=== PATIENT | female | born 1970 | race Caucasian/White ===

== ENCOUNTER 2017-09-27 10:32 | Observation (INO) | payer OTHER ==
[~2017-09-27] VITALS: Ht 170.2 cm; Wt 74.8 kg
[2017-09-27 11:21] LABS: ABSOLUTE BASOPHIL COUNT 0 /CUMM (0.0-0.2); ABSOLUTE EOSINOPHIL COUNT 0.2 /CUMM (0.0-0.7); ABSOLUTE GRANULOCYTE CT 10.1 /CUMM (1.4-6.5); ABSOLUTE MONOCYTE COUNT 0.8 /CUMM (0.10-0.60); BASOPHIL % 0.1 % (0.0-2.0); EOSINOPHIL % 1.3 % (0-5); GRANULOCYTE % 83.7 % (42.2-75.2); HEMATOCRIT 39.9 % (37-47); MEAN CORPUSCULAR HGB 28.7 PG (27.0-31.0); MEAN CORPUSCULAR HGB CONC 33.8 G/DL (33.0-37.0); MEAN PLATELET VOLUME 7.9 FL (7.4-10.4); PLATELET COUNT 346 /CUMM (130-400); RBC DISTRIBUTION WIDTH 12.7 % (11.5-14.5); RED BLOOD CELL CT 4.69 /CUMM (4.20-5.40); WHITE BLOOD CELL COUNT 12.1 /CUMM (4.8-10.8)
--- NOTE | 2017-09-27 12:10 | ED GI/GU/ABDOMINAL COMPLAINT ---
History of Present Illness General Chief Complaint: Abdominal Pain/Flank Pain Stated Complaint: SENT IN BY URGENT CARE FOR ABD PAIN Source: patient Exam Limitations: no limitations Vital Signs & Intake/Output Vital Signs & Intake/Output Vital Signs Date Time Temp Pulse Resp B/P B/P Pulse O2 O2 Flow FiO2 Mean Ox Delivery Rate 09/27 1559 97.8 74 18 123/66 98 Room Air 09/27 1348 98.8 78 18 122/64 96 Room Air 09/27 1059 99.3 94 20 139/85 97 Room Air Allergies Coded Allergies: No Known Allergies (09/27/17) Reconcile Medications Acetaminophen (Tylenol Extra Strength) 500 MG TABLET 1 TAB PO Q6-8P PRN pain control available over the counter Amoxicillin/Potassium Clav (Augmentin 875-125 Tablet) 875 MG-125 MG TABLET 1 TAB PO BID INFECTION Docusate Sodium 100 MG CAPSULE 100 MG PO BID PRN CONSTIPATION .stool softener available over the counter Norethindrone AC-Eth Estradiol (Junel 1 MG-20 Mcg Tablet) 1 MG-20 MCG TABLET 1 TAB PO DAILY BC (Reported) Tramadol HCl 50 MG TABLET 1-2 TAB PO Q4-6 PRN PRN pain control . Triage Note: COMPLAINS OF N/V/D AND DIFFUSE ABD PAIN FOR THE PAST 4 DAYS. LBM THIS AM AND STATES THAT SHE HAS NOT BEEN EATING WELL DUE TO SYMPTOMS Triage Nurses Notes Reviewed? yes ? N Is pt currently ? No Onset: Abrupt Duration: hour(s): (12) Timing: multiple episodes today Quality/Severity: moderate, severe, vomiting Severity Numbers: 10 Location: right upper quadrant Radiation: back Activities at Onset: eating Modifying Factors: Worsens With: eating. Associated Symptoms: abdominal pain, nausea/vomiting HPI: This is a 46-year-old female who presents to the ER for chief complaint of epigastric abdominal pain, multiple episodes of nausea and vomiting that started last night after eating dinner. Pain radiates to her right flank. No fever but positive chills. She had similar symptoms between Monday night and Monday where she states that the pain came after eating. She does not drink any frequent alcohol. No history of similar symptoms. She denies any sick contacts. Past History Travel History Traveled to [place] past 21 day No Medical History Any Pertinent Medical History? 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 No Review of Systems Review of Systems Constitutional: Denies: chills, fever. EENTM: Reports: no symptoms. Respiratory: Reports: no symptoms. Cardiovascular: Reports: no symptoms. GI: Reports: abdominal pain, nausea, vomiting. Genitourinary: Denies: discharge, dysuria, frequency, hematuria. Musculoskeletal: Reports: back pain. Skin: Reports: no symptoms. Neurological/Psychological: Reports: no symptoms. Hematologic/Endocrine: Denies: bruising, bleeding, polyuria, polydipsia. Immunologic/Allergic: Denies: splenectomy. All Other Systems: Reviewed and Negative Physical Exam Physical Exam General Appearance: well developed/nourished, alert, awake, anxious, mild distress, moderate distress Head: atraumatic, normal appearance Eyes: Bilateral: normal appearance, PERRL, EOMI. Ears, Nose, Throat, Mouth: hearing grossly normal, DRY ORAL MUCOSA Neck: normal inspection, supple, full range of motion Respiratory: normal breath sounds, chest non-tender, no respiratory distress Cardiovascular: regular rate/rhythm Peripheral Pulses: 2+ radial (R), 2+ radial (L) Gastrointestinal: normal bowel sounds, soft, tenderness (RUQ), POSITIVE MURPHYS Back: normal inspection, normal range of motion Extremities: normal range of motion Neurologic/Psych: no motor/sensory deficits, awake, alert, oriented x 3 Skin: intact, normal color, warm/dry Core Measures ACS in differential dx? No Sepsis Present: No Sepsis Focused Exam Completed? No Progress Differential Diagnosis: biliary colic, cholecystitis, peptic ulcer, PUD/GERD, perforated viscous Plan of Care: Orders Procedure Date/time Status Place in observation 09/27 1625 Active Add-on Test (ER Only) 09/27 1217 Active LIPASE 09/27 1110 Complete URINALYSIS 09/27 1102 Complete PARTIAL THROMBOPLASTIN TIME 09/27 1102 Complete PROTHROMBIN TIME 09/27 1102 Complete LACTIC ACID 09/27 1102 Complete COMPREHENSIVE METABOLIC PANEL 09/27 1102 Complete CBC WITHOUT DIFFERENTIAL 09/27 110 Complete Current Medications Sig/[place] Start time Last Medication Dose Stop Time Status Admin Ampicillin Sodium/ 3,000 MG ONCE ONE 09/27 1600 AC Sulbactam Sodium 09/27 1629 (Unasyn) Sodium Chloride 100 ML (Normal Saline 0.9%) Dextrose/Sodium 1,000 ML Q8H 09/27 1530 AC 09/27 Chloride 1537 (D5W-1/2 Normal Saline 1000ML) Laboratory Tests 09/27/17 1437: Urine Color YEL, Urine Clarity CLEAR, Urine pH 7.0, Ur Specific [place] 1.015, Urine Protein NEG, Urine Ketones 40 H, Urine Nitrite NEG, Urine Bilirubin NEG, Urine Urobilinogen 0.2, Ur Leukocyte Esterase NEG, Ur Microscopic EXAM NOT REQUIRED, Urine Hemoglobin NEG, Urine Glucose NEG 09/27/17 1402: Lactic Acid Cancelled 09/27/17 1110: Anion Gap 12, Estimated GFR > 60, BUN/Creatinine Ratio 12.9, Glucose 97, Lactic Acid 0.7, Calcium 9.4, Total Bilirubin 0.7, AST 24, ALT 30, Alkaline Phosphatase 58, Total Protein 6.5, Albumin 3.6, Globulin 2.9, Albumin/Globulin Ratio 1.2, Lipase 28, CBC w Diff MAN DIFF ORDERED, RBC 4.69, MCV 85.0, MCH 28.7, RDW 12.7, MPV 7.9, Gran % 83.7 H, Lymphocytes % 7.9 L, Monocytes % 7.0, Eosinophils % 1.3, Basophils % 0.1, Absolute Granulocytes 10.1 H, Absolute Lymphocytes 1.0 L , Absolute Monocytes 0.8 H, Absolute Eosinophils 0.2, Absolute Basophils 0, Platelet Estimate VERIFIED BY SMEAR, Normocytic RBCs VERIFIED, Normochromic RBCs VERIFIED, PUBS MCHC 33.8 09/27/17 1102: PT 12.1, INR 1.15, APTT 26 2 PM D/W DR HALE FOR SURGICAL EVALUTION. SURGICAL PA PAGED. PATIENT UPDATED. Diagnostic Imaging: Viewed by Me: Ultrasound. Discussed w/RAD: Ultrasound. Radiology Impression: PATIENT: TIEN SOTO PRESENT AGE: 46 PATIENT ACCOUNT NO: [id number] : 69 LOCATION: [facility] ORDERING PHYSICIAN: Windy Barreto MD SERVICE DATE: 09/27/17 EXAM TYPE: US - US- LIMITED ABDOMEN EXAMINATION: US ABDOMEN LIMITED CLINICAL INFORMATION: Upper abdominal pain and vomiting x2 days. COMPARISON: None TECHNIQUE: Real-time imaging of the right upper quadrant abdominal viscera. FINDINGS: PANCREAS: Partially visualized body of the pancreas appears normal homogeneous echotexture. Rest of the pancreas is not visualized. LIVER: Normal. The liver demonstrates normal size, contour and echogenicity. No focal lesion or intrahepatic biliary duct dilatation. GALLBLADDER: There are multiple echogenic gallstones and echogenic bile with mild gallbladder wall thickening of 0.5 cm and pericholecystic trace fluid. Mild tenderness in the right upper quadrant is noted. Findings as suggestive of acute cholecystitis. COMMON BILE DUCT: Normal in caliber measuring 0.4 cm in diameter. RIGHT KIDNEY: Normal. No hydronephrosis. No renal calculi or focal parenchymal lesions. The kidney measures 11.5 cm in maximum dimension. FREE FLUID: None. IMPRESSION: Echogenic stones, echogenic bile with gallbladder wall thickening and trace fluid and mild tenderness in right upper quadrant by ultrasound probe is strongly suspicious for acute cholecystitis. Correlate with clinical exam. The CBD is nondilated measuring 0.4 cm. The right kidney and liver appears unremarkable. The pancreas is suboptimally visualized. DICTATED BY: Nuno Bhandari MD DATE/TIME DICTATED:1309 CUSTOMER SERVICE REP:DOTTIE DATE/TIME TRANSCRIBED:09/27/171309 CONFIDENTIAL, DO NOT COPY WITHOUT APPROPRIATE AUTHORIZATION. <Electronically signed in Other Vendor System> SIGNED BY: Nuno Bhandari MD 09/27/171318 Initial ED EKG: none Departure Departure Time of Disposition: 1551 Disposition: STILL A PATIENT Condition: Stable Clinical Impression Primary Impression: Acute cholecystitis Referrals: Rosy Camargo MD (PCP/Family) Departure Forms: Customer Survey General Discharge Information Prescriptions: Current Visit Scripts Amoxicillin/Potassium Clav (Augmentin 875-125 Tablet) 1 TAB PO BID #14 TAB Tramadol HCl 1-2 TAB PO Q4-6 PRN PRN pain control #30 TAB . Docusate Sodium 100 MG PO BID PRN CONSTIPATION #30 CAP .stool softener available over the counter Acetaminophen (Tylenol Extra Strength) 1 TAB PO Q6-8P PRN pain control 10 Days available over the counter Admission Note Documentation of Exam: Documentation of any treatments & extenuating circumstances including Concerns Regarding Discharge (functional status, medication knowledge or non-compliance, living conditions, etc.) that warrant an admission rather than observation: Observation Note Spoke With: Moe Hale DO Physician Advisor Notified: SIOMARA OLVERA DO Place Patient In: Non-ED OBS Care Area Rationale for Observation: My rational for observation is as follows [NPO, IV FLUIDS, IV ABX, TO GO TO THE OR FOR CHOLECYSTECTOMY].
[2017-09-27] MEDS ORDERED: JUNEL 1 MG-201 EACH PO (12:17)
[2017-09-27 12:41] LABS: PT 12.1 SEC (9.4-12.5); PTT 26 SEC (25-37)
--- NOTE | 2017-09-27 13:19 | ULTRASOUND REPORT ---
EXAMINATION: US ABDOMEN LIMITED CLINICAL INFORMATION: Upper abdominal pain and vomiting x2 days. COMPARISON: None TECHNIQUE: Real-time imaging of the right upper quadrant abdominal viscera. FINDINGS: PANCREAS: Partially visualized body of the pancreas appears normal homogeneous echotexture. Rest of the pancreas is not visualized. LIVER: Normal. The liver demonstrates normal size, contour and echogenicity. No focal lesion or intrahepatic biliary duct dilatation. GALLBLADDER: There are multiple echogenic gallstones and echogenic bile with mild gallbladder wall thickening of 0.5 cm and pericholecystic trace fluid. Mild tenderness in the right upper quadrant is noted. Findings as suggestive of acute cholecystitis. COMMON BILE DUCT: Normal in caliber measuring 0.4 cm in diameter. RIGHT KIDNEY: Normal. No hydronephrosis. No renal calculi or focal parenchymal lesions. The kidney measures 11.5 cm in maximum dimension. FREE FLUID: None. IMPRESSION: Echogenic stones, echogenic bile with gallbladder wall thickening and trace fluid and mild tenderness in right upper quadrant by ultrasound probe is strongly suspicious for acute cholecystitis. Correlate with clinical exam. The CBD is nondilated measuring 0.4 cm. The right kidney and liver appears unremarkable. The pancreas is suboptimally visualized.
--- NOTE | 2017-09-27 20:17 | History & Physical Pre-Op ---
GinaAmanda 09/27/17 2007: General Information and HPI MD Statement: I have seen and personally examined TIEN SOTO and documented this H&P. The patient is a 46 year old F who presented with a patient stated chief complaint of [epigastric abdominal pain]. Source of Information: patient Exam Limitations: no limitations History of Present Illness: Patient presents to the ER today with complaints of nausea and vomitting that began after eating dinner last night. She states that she had a similar episode of nausea several days ago that resolved spontaneously. She denies chest pain, shortness of breath and difficulty breathing. She had a loose bm three days ago , then was constipated until this am when she had a formed, difficult to pass bowel movement. She underwent a diagnostic ultrasound and was found to have a positive avendano's sign during the procedure, in addition to the findings suggestive of cholecystitis and cholelithiasis. 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 EENTM: Reports: no symptoms. Cardiovascular: Reports: no symptoms. Respiratory: Reports: no symptoms. GI: Reports: see HPI, abdominal pain, constipation, nausea, vomiting. Genitourinary: Reports: no symptoms. Musculoskeletal: Reports: no symptoms. Skin: Reports: no symptoms. Neurological/Psychological: Reports: no symptoms. Hematologic/Endocrine: Reports: no symptoms. Exam & Diagnostic Data Last 24 Hrs of Vital Signs/I&O Vital Signs Date Time Temp Pulse Resp B/P B/P Pulse O2 O2 Flow FiO2 Mean Ox Delivery Rate 09/27 1832 98.6 74 18 130/77 98 Room Air 09/27 1559 97.8 74 18 123/66 98 Room Air 09/27 1348 98.8 78 18 122/64 96 Room Air 09/27 1059 99.3 94 20 139/85 97 Room Air Intake & Output 09/27 1600 09/27 0800 09/27 0000 Intake Total 1000 Output Total Balance 1000 Intake, IV 1000 Patient 165 lb Weight Physical Exam: General: Alert and oriented x3, no acute distress Cardiac: RRR, s1s2 Pulm: CTA bilaterally Abd: Epigastic tenderness, ruq tenderness, soft distension Extremities: Moves all extremities, distal sensation intact, skin warm and well perfused, dp pulses palpable bilaterally, bilateral calves soft and non-tender Assessment/Plan Assessment/Plan: This is a 46 year old female, presented to ER with complaints of epigastric abdominal pain, found to have acute cholecystitis/cholelithiasis on ultrasound evaluation. -Unasyn 3g iv now -NPO -IV hydration -Morphine prn for pain -Plan for laparoscopic cholecystectomy with Dr. Bowser today Mague DIALLO Abraham 09/27/172211: Assessment/Plan As Ranked By This Provider Problem List: 1. Acute cholecystitis Attending MD Review Statement Attending Statement Attending MD Statement: examined this patient, discuss w/resident/PA/DIABETES TERRITORY MANAGER, agreed w/resident/PA/DIABETES TERRITORY MANAGER, discussed with family, reviewed images Attending Assessment/Plan: Patient seen and examined, agree with above. Abdominal pain on and off since Monday. + N/V. Pain epigastric/RUQ. AVSS. Abd-soft, +RUQ tenderness. Labs WBC 12, otherwise normal. Reji - c/w acute calculous cholecystitis. Will admit, NPO/ IVF, IV Abx, plan for Lap Cherelle today. D/W patient, family, and ED staff.
--- NOTE | 2017-09-27 22:26 | Operative Report ---
Operative/Inv Procedure Report Surgery Date: 09/27/17 Name of Procedure: Laparoscopic Cholecystectomy Pre-Operative Diagnosis: Acute Cholecystitis Post-Operative Diagnosis: Same Estimated Blood Loss: 50ml to 100ml Surgeon/Skin Toggler: Moe Zamorano Anesthesia: general endotracheal tube IV Fluids: 1700 cc Drains: 10 Fr RUQ PO Drain Specimens: Gallbladder Complications: None Condition: Stable Operative Indication: This is a 46-year-old female who presented to the emergency room with several days of abdominal pain. After appropriate workup was completed the patient was diagnosed with acute cholecystitis. A laparoscopic possible open cholecystectomy was discussed in detail. All risks including but not limited to bleeding, infection, bile leak, and injury to surrounding duct/bowel were discussed in detail. I did explain to the patient and family given the duration of the symptoms there is a chance that the gallbladder may be badly inflamed may require more extensive dissection and postoperative care PO drain and antibiotics. The patient and the family understood everything and decided to proceed. Operative/Procedure Note Note: The patient was brought to the operating room and placed on the operating room table in supine position. Venodyne stockings were placed and adequate general endotracheal anesthesia was obtained. The patient was prepped and draped in standard surgical fashion. We began the procedure by making a 2 cm transverse incision in the infraumbilical crease. The incision was carried down to the fascia, once the fascia was clearly visualized it was picked up between 2 pepper clamps. The fascia was divided in the midline and once we entered the peritoneum 2 stay 0 Vicryl sutures were placed on each side. A 12 mm blunt port was inserted and the abdominal cavity was insufflated to 15 mmHg. A 10 mm 30 laparoscope was introduced and upon initial examination no obvious gross pathology was seen. We did note a markedly distended gallbladder in the right upper quadrant with omentum adhesed to it covering the whole gallbladder. Accessory trocars were placed, all 5 mm, one in the epigastrium and 2 in the right upper quadrant (one in the midclavicular line and one in the anterior axillary line, both 2 fingerbreadths below the costal margin). The gallbladder was grasped with the lateralmost trocar and retracted up over the liver after lysing omental adhesions using blunt dissection and hook electrocuatery. Of note approximately 30 cc of bile were aspirated to allow me to grasp the gallbladder. Using the other 2 accessory trocars the infundibulum was grasped and the peritoneum was lysed using blunt dissection and using hook electrocautery. There was a lot of inflammation and dense adhesions around the infundibulum altering the anatomy. The cystic artery were visualized. The common bile duct was visualized and it was away from our area of dissection. The artery was skeletonized and divided between clips, 2 clips to stay and one clip on the gallbladder side for the artery. We then proceeded dissecting further and a very short cystic duct was encountered that appeared slightly friable and involved in the dense adhesions. The duct was dissected and divided between clips, only 2 clips were able to be placed to stay given inflammation and friable nature of the duct. The gallbladder was dissected off the liver bed using hook electrocautery maintaining hemostasis. Prior to completely removing the gallbladder off the liver bed we examined the area of dissection no obvious bile leak or bleeding was noted, the clips appeared to be in good position. The gallbladder was completely detached from the liver bed. Of note the gallbladder was very friable and at points necrotic so there was no dissection pland and the removal took some time. We switched to a 5 mm laparoscope and a 10 mm Endobag was introduced through the umbilical trocar site. The gallbladder was placed in the bag and removed through the umbilicus. The abdomen was reinsufflated. We switched back to a 10 mm laparoscope and examined our area of dissection. No obvious bile leak or bleeding was noted. The right upper quadrant was irrigated until clear. 10 [address] PO drain was place through the lateral most trocar into the gallbladder fossa. All ports were removed under direct visualization, no obvious bleeding was noted. The umbilical trocar site was closed using 0 Vicryl suture. The skin was closed using 4-0 Monocryl. Steri-Strips and dressings were placed. The patient was successfully extubated and transferred to the recovery room in stable condition. The patient tolerated the procedure well with no complications. Findings: Friable/necrotic gallbladder, multiple stones, short cystic duct, dense adhesions/inflammation around infundibulum CC: Mary Jo STRONG,Rosy
--- NOTE | 2017-09-27 23:24 | Admission Core Measures ---
Acute Coronary Syndrome (CM) ACS Core Measures Acute Coronary Syndrome Diagnosis No Congestive Heart Failure (NEW) CHF Core Measures Congestive Heart Failure Diagnosis No Cerebrovascular Accident (NEW) CVA Core Measures CVA/TIA Diagnosis No Venous Thromboembolism VTE Core [place] (View Protocol) VTE Risk Factors Surgery No Mechanical VTE Prophylaxis d/t N/A MechProphylax Ordered No VTE Pharm Prophylaxis d/t NA PharmProphylax ordered Problem List As ranked by this Provider includes Assessment & Plan 1. Acute cholecystitis HOME MEDS Home Med List Norethindrone AC-Eth Estradiol (Junel 1 MG-20 Mcg Tablet) 1 MG-20 MCG TABLET 1 TAB PO DAILY BC (Reported)
[2017-09-28 00:08] VITALS: BP 132/68
--- NOTE | 2017-09-28 07:41 | PN- General Surgery ---
See Addendum Subjective Subjective: No acute overnight events reported. Pain controlled. No nausea or vomitting. No chest pain, shortness of breath and difficulty breathing. Has voided. No flatus. Objective Vital Signs and I&Os Vital Signs Date Time Temp Pulse Resp B/P B/P Pulse O2 O2 Flow FiO2 Mean Ox Delivery Rate 09/28 0008 97.9 84 18 132/68 91 09/27 1832 98.6 74 18 130/77 98 Room Air 09/27 1559 97.8 74 18 123/66 98 Room Air 09/27 1348 98.8 78 18 122/64 96 Room Air 09/27 1059 99.3 94 20 139/85 97 Room Air Intake & Output 09/28 0800 09/28 0000 09/27 1600 09/27 0800 09/27 0000 09/26 1600 Intake Total 1000 Output Total 950 Balance -950 1000 Intake, IV 1000 Output, Urine 950 Patient 165 lb 165 lb Weight Physical Exam: General: AAO x3, no acute distress Cardiac: RRR, s1s2 PUlm: CTA bilaterally ABD: Padmini-incisional tenderness Assessment/Plan Assessment/Plan This is a 46 year old female, POD 1, s/p laparoscopic cholecystectomy, placed in observation status for iv antibiotic administrations, post op monitoring and pain control. -Continue unasyn for now -DC iv fluids if tolerating po -Follow up am labs -Hep sub q for dvt ppx -Continue drain to self suction today, monitor output -Anticipate dc to home possibly today vs tomorrow -Will d/w Dr. Bowser Core Measures Venous Thromboembolism VTE Risk Factors Surgery No Mechanical VTE Prophylaxis d/t N/A MechProphylax Ordered No VTE Pharm Prophylaxis d/t NA PharmProphylax ordered
[2017-09-28 07:58] VITALS: BP 130/70
[2017-09-28 12:56] LABS: ABSOLUTE BASOPHIL COUNT 0 /CUMM (0.0-0.2); ABSOLUTE EOSINOPHIL COUNT 0 /CUMM (0.0-0.7); ABSOLUTE GRANULOCYTE CT 8.7 /CUMM (1.4-6.5); ABSOLUTE LYMPH COUNT 0.8 /CUMM (1.2-3.4); ABSOLUTE MONOCYTE COUNT 0.5 /CUMM (0.10-0.60); BASOPHIL % 0.1 % (0.0-2.0); EOSINOPHIL % 0.2 % (0-5); HEMATOCRIT 35.2 % (37-47); MEAN CORPUSCULAR HGB 29.2 PG (27.0-31.0); MEAN CORPUSCULAR HGB CONC 34.4 G/DL (33.0-37.0); MEAN CORPUSCULAR VOLUME 84.8 FL (81.0-99.0); MEAN PLATELET VOLUME 8.2 FL (7.4-10.4); PLATELET COUNT 281 /CUMM (130-400); RBC DISTRIBUTION WIDTH 12.3 % (11.5-14.5); RED BLOOD CELL CT 4.15 /CUMM (4.20-5.40)
[2017-09-28 13:18] LABS: GRANULOCYTE % 87.3 % (42.2-75.2)
[2017-09-28 14:39] VITALS: BP 110/64
--- NOTE | 2017-09-28 20:04 | Patient Discharge Instructions ---
Discharge Instructions General Discharge Information You were seen/treated for: Acute cholecystitis You had these procedures: Laparoscopic Cholecystectomy on 09/27/[address] Bowser Watch for these problems: Increased pain, fever, chills, nausea, vomiting, redness, swelling or purulent drainage from your incisions Do not soak the wound: Yes No bath, but you may shower: Yes Other wound care: Keep incisions clean and dry Change dressing daily as needed Special Instructions: Contact Dr. Rea office to schedule a follow up appointment in 10-14 days or sooner with concerns. Diet Continue normal diet: No Recommended Diet: Low Fat Activity Full Activity/No Limits: No Pounds, do NOT lift more than: 10 Other activity limits: No heavy lifting or strenous activity x 4 weeks Acute Coronary Syndrome Inclusion Criteria At DC or during hospital stay patient has or had the following: ACS DIAGNOSIS No Discharge Core Measures Meds if any: Prescribed or Continued at Discharge Meds if any: NOT Prescribed or Continued at Discharge Congestive Heart Failure Inclusion Criteria At DC or during hospital stay patient has or had the following: CHF DIAGNOSIS No Discharge Core Measures Meds if any: Prescribed or Continued at Discharge Meds if any: NOT Prescribed or Continued at Discharge Cerebrovascular accident Inclusion Criteria At DC or during hospital stay patient has or had the following: CVA/TIA Diagnosis No Discharge Core Measures Meds if any: Prescribed or Continued at Discharge Meds if any: NOT Prescribed or Continued at Discharge Venous thromboembolism Inclusion Criteria VTE Diagnosis No VTE Type NONE VTE Confirmed by (Test) NONE Discharge Core Measures - Per Current guidelines, there needs to be overlap - treatment for the first 5 days of Warfarin therapy. - If discharged on Warfarin prior to 5 days of - overlap therapy, the patient will need to be - assessed for post discharge needs including - *Post discharge parental anticoagulation - *Warfarin and/or parental anticoagulation education - *Follow up date to check INR post discharge At least 5 days overlap therapy as Inpatient No Meds if any: Prescribed or Continued at Discharge Note: Overlap Therapy is Warfarin and Anticoagulant Meds if any: NOT Prescribed or Continued at Discharge
--- NOTE | 2017-09-28 20:11 | Surg Short-stay <48hrs Dis Sum ---
Visit Information Visit Dates Admission Date: 09/27/17 Discharge Date: 09/29/17 Surgical Short Stay DC Summary Admission Diagnosis: Acute cholecystitis Final Diagnosis: DERICK, s/p laparoscopic cholecystectomy Procedure(s): Laparoscopic cholecystectomy on 09/27/17 Summary/Significant Findings: Patient presented to [facility] on 09/27/17 complaining of epigastric pain , nausea and vomiting. She had a diagnostic ultrasound which revealed findings suggestive of cholecystitis and cholelithiasis. She was started on IV Unasyn and taken to the OR emergently for a laparoscopic cholecystectomy with PO drain placement. Patient tolerated the procedure well. Diet was advanced and tolerated. Pain was well controlled with oral analgesics. PO drain was removed prior to discharge. Remainder of hospital course was uneventful. Condition at Discharge: Stable Discharge Disposition: home or self care Discharge instructions provided to patient/family: Yes Post discharge follow-up plan: F/u with Dr. Bowser in 1-2 weeks for postop check Copies to: Rosy Camargo MD
[2017-09-28 21:36] VITALS: BP 110/70
[2017-09-29 06:57] VITALS: BP 110/66
--- NOTE | 2017-09-29 07:32 | PN- General Surgery ---
Subjective Subjective: Reports feeling "weak". Tolerating clears. Passing some flatus. Reports pain improves with toradol. She can't tolerate percocet. Out of bed a few times yesterday. No dizziness. No shortness of breath. No chest pains. Objective Vital Signs and I&Os Vital Signs Date Time Temp Pulse Resp B/P B/P Pulse O2 O2 Flow FiO2 Mean Ox Delivery Rate 09/29 0657 98.3 88 20 110/66 93 Room Air 09/28 2136 98.2 87 20 110/70 95 09/28 1439 98.6 101 20 110/64 93 Room Air 09/28 0758 97.9 75 18 130/70 95 Intake & Output 09/29 0800 09/29 0000 09/28 1600 09/28 0800 09/28 0000 09/27 1600 Intake Total 550 629 394 5272 Output Total 300 1665 1440 Balance 250 -1190 -480 1000 Intake, IV 75 600 1000 Intake, Oral 550 400 360 Output, 15 40 Drainage Output, Urine 300 1650 1400 Patient 165 lb 165 lb Weight Physical Exam: General - alert & oriented x 3. comfortable. no acute distress. Lungs - clear. decreased breath sounds b/l bases. Cardiac - s1s2. reg. Abdomen - soft. PO drain with scant serosang drainage. no bile. expected laila- incisional tenderness. Extremities - warm bilaterally. no c/c/e. calves soft and nontender b/l. Current Medications: Current Medications Sig/[place] Start time Last Medication Dose Route Stop Time Status Admin Ampicillin Sodium/ 3,000 MG Q6H 09/28 0900 09/29 Sulbactam Sodium IV 0329 Sodium Chloride 100 ML Dextrose/Sodium 1,000 ML .[id number] 09/27 2330 AL 09/28 Chloride IV 0033 Docusate Sodium 100 MG BID 09/28 2200 AC 09/28 PO 2130 Heparin Sodium 5,000 UNIT Q8 09/28 0600 AC 09/29 (Porcine) SC 0636 Ketorolac 30 MG Q8H 09/28 1730 AC 09/29 Tromethamine IV 0135 Ketorolac 30 MG Q8P PRN 09/28 0800 DC 09/28 Tromethamine IV 10/01 0759 0800 Ondansetron HCl 4 MG Q8P PRN 09/27 2330 IV Oxycodone/ 1 TAB Q4P PRN 09/27 2345 DC Acetaminophen PO Oxycodone/ 2 TAB Q4P PRN 09/27 2345 DC Acetaminophen PO Polyethylene Glycol 17 GM DAILY 09/28 2108 AC 09/28 PO 2152 Tramadol HCl 50 MG Q4P PRN 09/28 09 AC 09/28 PO 2129 Zolpidem Tartrate 5 MG AT BEDTIME 09/28 2200 AC 09/28 PO 213 Results Last 48 Hours of Labs: Laboratory Tests 09/28 09/28 1231 1231 Chemistry Sodium (137 - 145 mmol/L) 137 Potassium (3.5 - 5.1 mmol/L) 3.7 Chloride (98 - 107 mmol/L) 104 Carbon Dioxide (22 - 30 mmol/L) 25 Anion Gap (5 - 16) 9 BUN (7 - 17 mg/dL) 5 L Creatinine (0.5 - 1.0 mg/dL) 0.6 Estimated GFR (>60 ml/min) > 60 BUN/Creatinine Ratio (7 - 25 %) 8.3 Total Bilirubin (0.2 - 1.3 mg/dL) 0.3 Direct Bilirubin (< 0.4 mg/dL) 0.3 AST (14 - 36 U/L) 36 ALT (9 - 52 U/L) 42 Alkaline Phosphatase (<127 U/L) 62 Total Protein (6.3 - 8.2 g/dL) 5.6 L Albumin (3.5 - 5.0 g/dL) 3.2 L Hematology CBC w Diff NO MAN DIFF REQ WBC (4.8 - 10.8 /CUMM) 10.0 RBC (4.20 - 5.40 /CUMM) 4.15 L Hgb (12.0 - 16.0 G/DL) 12.1 Hct (37 - 47 %) 35.2 L MCV (81.0 - 99.0 FL) 84.8 MCH (27.0 - 31.0 PG) 29.2 RDW (11.5 - 14.5 %) 12.3 Plt Count (130 - 400 /CUMM) 281 MPV (7.4 - 10.4 FL) 8.2 Gran % (42.2 - 75.2 %) 87.3 H Lymphocytes % (20.5 - 51.1 %) 7.9 L Monocytes % (1.7 - 9.3 %) 4.5 Eosinophils % (0 - 5 %) 0.2 Basophils % (0.0 - 2.0 %) 0.1 Absolute Granulocytes (1.4 - 6.5 /CUMM) 8.7 H Absolute Lymphocytes (1.2 - 3.4 /CUMM) 0.8 L Absolute Monocytes (0.10 - 0.60 /CUMM) 0.5 Absolute Eosinophils (0.0 - 0.7 /CUMM) 0 Absolute Basophils (0.0 - 0.2 /CUMM) 0 PUBS MCHC (33.0 - 37.0 G/DL) 34.4 09/27 09/27 1437 1402 Chemistry Lactic Acid Cancelled Urines Urine Color (YEL,AMB,STR) YEL Urine Clarity (CLEAR) CLEAR Urine pH (5.0 - 8.0) 7.0 Ur Specific [place] (1.001 - 1.035) 1.015 Urine Protein (NEG,<30 MG/DL) NEG Urine Ketones (NEG) 40 H Urine Nitrite (NEG) NEG Urine Bilirubin (NEG) NEG Urine Urobilinogen (0.1 - 1.0 EU/dl) 0.2 Ur Leukocyte Esterase (NEG) NEG Ur Microscopic EXAM NOT REQUIRED Urine Hemoglobin (NEG) NEG Urine Glucose (N MG/DL) NEG 09/27 09/27 1110 1102 Chemistry Sodium (137 - 145 mmol/L) 140 Potassium (3.5 - 5.1 mmol/L) 4.0 Chloride (98 - 107 mmol/L) 105 Carbon Dioxide (22 - 30 mmol/L) 23 Anion Gap (5 - 16) 12 BUN (7 - 17 mg/dL) 9 Creatinine (0.5 - 1.0 mg/dL) 0.7 Estimated GFR (>60 ml/min) > 60 BUN/Creatinine Ratio (7 - 25 %) 12.9 Glucose (65 - 99 mg/dL) 97 Lactic Acid (0.7 - 2.1 mmol/L) 0.7 Calcium (8.4 - 10.2 mg/dL) 9.4 Total Bilirubin (0.2 - 1.3 mg/dL) 0.7 AST (14 - 36 U/L) 24 ALT (9 - 52 U/L) 30 Alkaline Phosphatase (<127 U/L) 58 Total Protein (6.3 - 8.2 g/dL) 6.5 Albumin (3.5 - 5.0 g/dL) 3.6 Globulin (1.9 - 4.2 gm/dL) 2.9 Albumin/Globulin Ratio (1.1 - 2.2 %) 1.2 Lipase (23 - 300 U/L) 28 Coagulation PT (9.4 - 12.5 SEC) 12.1 INR (0.90 - 1.19) 1.15 APTT (25 - 37 SEC) 26 Hematology CBC w Diff MAN DIFF ORDERED WBC (4.8 - 10.8 /CUMM) 12.1 H RBC (4.20 - 5.40 /CUMM) 4.69 Hgb (12.0 - 16.0 G/DL) 13.5 Hct (37 - 47 %) 39.9 MCV (81.0 - 99.0 FL) 85.0 MCH (27.0 - 31.0 PG) 28.7 RDW (11.5 - 14.5 %) 12.7 Plt Count (130 - 400 /CUMM) 346 MPV (7.4 - 10.4 FL) 7.9 Gran % (42.2 - 75.2 %) 83.7 H Lymphocytes % (20.5 - 51.1 %) 7.9 L Monocytes % (1.7 - 9.3 %) 7.0 Eosinophils % (0 - 5 %) 1.3 Basophils % (0.0 - 2.0 %) 0.1 Absolute Granulocytes (1.4 - 6.5 /CUMM) 10.1 H Absolute Lymphocytes (1.2 - 3.4 /CUMM) 1.0 L Absolute Monocytes (0.10 - 0.60 /CUMM) 0.8 H Absolute Eosinophils (0.0 - 0.7 /CUMM) 0.2 Absolute Basophils (0.0 - 0.2 /CUMM) 0 Platelet Estimate (ADEQUATE) VERIFIED BY SMEAR Normocytic RBCs VERIFIED Normochromic RBCs VERIFIED PUBS MCHC (33.0 - 37.0 G/DL) 33.8 Assessment/Plan Assessment/Plan This 46 year old female is POD#2 s/p laparoscopic cholecystectomy for acute cholecystitis tolerating clears. to try food this morning iv unasyn for acute cary pain improves with iv toradol / tylenol hep sc - dvt ppx oob/ambulation encouraged PO drain removed d/c home today after labs checked & reviewed, including lfts will d/w Core Measures Venous Thromboembolism VTE Risk Factors Surgery No Mechanical VTE Prophylaxis d/t N/A MechProphylax Ordered No VTE Pharm Prophylaxis d/t NA PharmProphylax ordered
[2017-09-29] MEDS ORDERED: TRAMADOL HCL50 M1 PO ×2 (07:43→14:35)
[2017-09-29] MEDS ORDERED: TYLENOL EXTRA500 M2 PO (07:43)
[2017-09-29] MEDS ORDERED: DOCUSATE SODIU100 M3 PO ×2 (07:43→14:38)
[2017-09-29 10:59] LABS: ABSOLUTE BASOPHIL COUNT 0.1 /CUMM (0.0-0.2); ABSOLUTE EOSINOPHIL COUNT 0.2 /CUMM (0.0-0.7); ABSOLUTE GRANULOCYTE CT 5.7 /CUMM (1.4-6.5); ABSOLUTE LYMPH COUNT 0.9 /CUMM (1.2-3.4); ABSOLUTE MONOCYTE COUNT 0.6 /CUMM (0.10-0.60); BASOPHIL % 0.8 % (0.0-2.0); EOSINOPHIL % 2.4 % (0-5); GRANULOCYTE % 76.8 % (42.2-75.2); HEMATOCRIT 35.2 % (37-47); MEAN CORPUSCULAR HGB 28.9 PG (27.0-31.0); MEAN CORPUSCULAR HGB CONC 34.2 G/DL (33.0-37.0); MEAN CORPUSCULAR VOLUME 84.5 FL (81.0-99.0); MEAN PLATELET VOLUME 7.7 FL (7.4-10.4); PLATELET COUNT 303 /CUMM (130-400); RBC DISTRIBUTION WIDTH 12.6 % (11.5-14.5); RED BLOOD CELL CT 4.17 /CUMM (4.20-5.40); WHITE BLOOD CELL COUNT 7.5 /CUMM (4.8-10.8)
[2017-09-29] MEDS ORDERED: AUGMENTIN 875-1 EACH PO (12:18)
== END 2017-09-29 15:30 ==
LOC: ERH 10:32 → ER-OR 11:15 → PACUH 22:34 → 2NB 09-28 00:07 → ENPENDDIS 09-29 08:01 → ENTRNSPT 09-29 15:18 → 2NB 09-29 15:30 → CMPTRNSPT 09-29 15:32
PROVIDERS: Emergency Medicine; Physician Assistant
DX: K81.0 Acute cholecystitis (principal); R10.9 Unspecified abdominal pain; Z23 Encounter for immunization
CPT/HCPCS: 36415; 81003; 82436; 88304; 96372; 96374; 96375; 96376; C9399; G0008; G0378; J0131; J0690; J1170; J1644; J1885; J2250; J2405; J3010; J7042